=== PATIENT | female | born 1960 | race Two or more races ===

== ENCOUNTER 2020-04-06 14:55 | Inpatient (IN) | payer MEDICAID ==
[~2020-04-06] VITALS: Ht 160 cm; Wt 68.9 kg
[2020-04-06] MEDS ORDERED: METF-815 MT (15:17)
[2020-04-06] MEDS ORDERED: ASPIRIN 81MG TABLET PO ONE (16:15)
[2020-04-06 16:45] LABS: CHLORIDE 105 mEq/L (98-107)
[2020-04-06 16:46] LABS: BASOPHILS % 0.4 % (0.0-2.0); EOSINOPHILS % 1.5 % (0.0-5.0); HEMATOCRIT. 29.9 % (36.0-48.0); HEMOGLOBIN. 10.1 g/dL (12.0-16.0); MEAN CORPUSCULAR HEMOGLOBIN 28.6 pg (28.0-32.0); MEAN CORPUSCULAR VOLUME 84.8 fL (81.0-99.0); MEAN PLATELET VOLUME 8.9 fl (7.4-10.4); NEUTROPHILS % 69.1 % (40.0-76.0); PLATELET 298 x1000/uL (130-400); RED BLOOD CELL COUNT 3.52 mill/uL (4.2-5.4); RED CELL DISTRIBUTION WIDTH 15.4 % (11.6-14.6)
[2020-04-06 16:52] LABS: D-DIMER 2.12 mg/L FEU (<0.50); PARTIAL THROMBOPLASTIN TIME 26.3 sec (23.4-31.0); PROTHROMBIN TIME 10.6 sec (9.6-11.0)
[2020-04-06] MEDS ORDERED: AMLO10TA80 MT (17:41)
[2020-04-06] MEDS ORDERED: SPIR50TA5 PO (17:41)
[2020-04-06] MEDS ORDERED: FLUT9.9S16 BOTHNSTRLS (17:43)
[2020-04-06] MEDS ORDERED: HYDR25TA PO (17:43)
[2020-04-06] MEDS ORDERED: BENA40TA9 MT (17:44)
[2020-04-06] MEDS ORDERED: ATOR40TA70 MT (17:44)
[2020-04-06] MEDS ORDERED: ATEN-42 MT (17:45)
[2020-04-06] MEDS ORDERED: ALBU4TAB6 MT (17:46)
[2020-04-06 19:23] LABS: C REACTIVE PROTEIN QUANT 7.9 mg/L (0.0-3.0)
[2020-04-06] MEDS ORDERED: ACETAMINOPHEN 500MG TABLET PO ONE (20:45)
[2020-04-06] MEDS ORDERED: MORPHINE SULFATE 2 MG/ML CPJ (NOT FOR IM USE) IV ONE (20:45)
[2020-04-06] MEDS ORDERED: ENOXAPARIN 100MG/ML SYR SUBCUT NR (21:00)
[2020-04-07] VITALS (7 sets, daily range): BP systolic 89–115; BP diastolic 43–65
[2020-04-07] MEDS: CEFTRIAXONE 1,000 MG in DEXTROSE 5% WATER 50 ML IV SCH (04:00)
[2020-04-07] MEDS: AZITHROMYCIN 500 MG in DEXT 5% WATER 250 ML IV SCH (04:57)
[2020-04-07 05:20] LABS: HEMATOCRIT 29.7 % (36.0-48.0); MEAN CORPUSCULAR VOLUME 85.8 fL (81.0-99.0); PLATELET 271 x1000/uL (130-400); RED BLOOD CELL COUNT 3.46 mill/uL (4.2-5.4); RED CELL DISTRIBUTION WIDTH 14.8 % (11.6-14.6)
[2020-04-07 05:38] LABS: CHLORIDE 106 mEq/L (98-107)
[2020-04-07 05:43] LABS: LDL CHOLESTEROL 104 mg/dL (5-100)
[2020-04-07 05:45] LABS: T4 FREE 1.01 ng/dL (0.76-1.46)
[2020-04-07 05:56] LABS: HDL CHOLESTEROL 45 mg/dL (40-59)
[2020-04-07] MEDS: ENOXAPARIN 40MG/0.4ML SYR SUBCUT SCH (08:51)
[2020-04-07] MEDS ORDERED: ALBUTEROL 6.7GM HFA INHALER ORI PRN (09:00)
[2020-04-07] MEDS: ASPIRIN 81MG TABLET PO SCH (09:30)
[2020-04-07] MEDS ORDERED: ONDANSETRON HCL 4MG/2ML INJ IV PRN (09:30)
[2020-04-07] MEDS ORDERED: ACETAMINOPHEN 325MG TABLET PO PRN (09:30)
[2020-04-07] MEDS: ATORVASTATIN CALCIUM 40MG TABLET PO SCH (21:04)
[2020-04-08] VITALS (8 sets, daily range): BP systolic 90–167; BP diastolic 50–62
[2020-04-08] MEDS: CEFTRIAXONE 1,000 MG in DEXTROSE 5% WATER 50 ML IV SCH (02:03)
[2020-04-08] MEDS: AZITHROMYCIN 500 MG in DEXT 5% WATER 250 ML IV SCH (03:04)
[2020-04-08 08:10] LABS: BASOPHILS % 0.5 % (0.0-2.0); EOSINOPHILS % 1.7 % (0.0-5.0); HEMATOCRIT. 30.9 % (36.0-48.0); HEMOGLOBIN. 10.5 g/dL (12.0-16.0); LYMPHOCYTES % 25.9 % (20.0-50.0); MEAN CORPUSCULAR HEMOGLOBIN 28.8 pg (28.0-32.0); MEAN CORPUSCULAR VOLUME 85.2 fL (81.0-99.0); MEAN PLATELET VOLUME 8.6 fl (7.4-10.4); MONOCYTES % 7.3 % (2.0-8.0); NEUTROPHILS % 64.6 % (40.0-76.0); PLATELET 281 x1000/uL (130-400); RED BLOOD CELL COUNT 3.63 mill/uL (4.2-5.4); RED CELL DISTRIBUTION WIDTH 14.9 % (11.6-14.6)
[2020-04-08 08:17] LABS: CHLORIDE 103 mEq/L (98-107)
[2020-04-08] MEDS: ASPIRIN 81MG TABLET PO SCH (09:32)
[2020-04-08] MEDS: ENOXAPARIN 40MG/0.4ML SYR SUBCUT SCH (09:33)
[2020-04-09] VITALS: BP 118/60
[2020-04-09] MEDS ORDERED: CEFTRIAXONE 1,000 MG in DEXTROSE 5% WATER 50 ML IV SCH (03:00)
[2020-04-09 04:00] VITALS: BP 92/62
[2020-04-09] MEDS ORDERED: AZITHROMYCIN 500 MG TABLET PO SCH (09:00)
[2020-04-09] MEDS: ENOXAPARIN 40MG/0.4ML SYR SUBCUT SCH (09:05)
[2020-04-09] MEDS: ASPIRIN 81MG TABLET PO SCH (09:05)
[2020-04-09 09:58] VITALS: BP 96/52
[2020-04-09] MEDS: SODIUM CHLORIDE 0.9% 1,000 ML IV SCH (12:01)
[2020-04-09 13:35] LABS: BASOPHILS % 0.4 % (0.0-2.0); EOSINOPHILS % 2.1 % (0.0-5.0); HEMATOCRIT. 33.9 % (36.0-48.0); HEMOGLOBIN. 11.5 g/dL (12.0-16.0); LYMPHOCYTES % 25.1 % (20.0-50.0); MEAN CORPUSCULAR HEMOGLOBIN 28.9 pg (28.0-32.0); MEAN CORPUSCULAR VOLUME 85.2 fL (81.0-99.0); MEAN PLATELET VOLUME 8.6 fl (7.4-10.4); MONOCYTES % 7.4 % (2.0-8.0); PLATELET 321 x1000/uL (130-400); RED BLOOD CELL COUNT 3.98 mill/uL (4.2-5.4); RED CELL DISTRIBUTION WIDTH 14.8 % (11.6-14.6)
[2020-04-09 13:42] LABS: CHLORIDE 103 mEq/L (98-107)
[2020-04-09 17:07] VITALS: BP 104/49
[2020-04-09 20:00] VITALS: BP 104/52
[2020-04-09] MEDS: ATORVASTATIN CALCIUM 40MG TABLET PO SCH (20:22)
[2020-04-10] VITALS: BP 109/51
[2020-04-10] MEDS: SODIUM CHLORIDE 0.9% 1,000 ML IV SCH (03:17)
[2020-04-10 04:00] VITALS: BP 99/54
[2020-04-10] MEDS: ASPIRIN 81MG TABLET PO SCH (08:50)
[2020-04-10] MEDS: ENOXAPARIN 40MG/0.4ML SYR SUBCUT SCH (08:50)
[2020-04-10] MEDS ORDERED: IOHEXOL-300 100 ML BOTTLE ONE (09:02)
[2020-04-10] MEDS ORDERED: FENTANYL CITRATE/PF 50MCG/ML 2ML VIAL ONE (09:02)
[2020-04-10] MEDS ORDERED: MIDAZOLAM HCL 2 MG/2 ML VIAL ONE (09:02)
[2020-04-10] MEDS ORDERED: LIDOCAINE HCL 1% 20ML VIAL (Pyxis) INJ ONE (09:03)
[2020-04-10] MEDS ORDERED: ATROPINE SULFATE 1MG/10ML SYR IV PRN (09:45)
[2020-04-10] MEDS ORDERED: ACETAMINOPHEN 325MG TABLET PO PRN (09:45)
[2020-04-10 12:59] VITALS: BP 122/66
[2020-04-10 13:23] VITALS: BP 122/66
== END 2020-04-10 14:43 | disposition home or self-care (01) | DRG 191 ==
LOC: ER 14:55 → 7WST 19:34 → EDBEDREQTM 20:09 → EDBEDREQ 20:09 → ENRESERV 21:19 → 6WST 04-08 20:36
PROVIDERS: ADMIT Internal Medicine; ATTEND Internal Medicine
PROC: 4A023N7 Measurement of Cardiac Sampling and Pressure, Left Heart, Percutaneous Approach (ICD-10-PCS; principal; 2020-04-10)
PROC: B2111ZZ Fluoroscopy of Multiple Coronary Arteries using Low Osmolar Contrast (ICD-10-PCS; 2020-04-10)
PROC: B2151ZZ Fluoroscopy of Left Heart using Low Osmolar Contrast (ICD-10-PCS; 2020-04-10)
DX: I25.110 Atherosclerotic heart disease of native coronary artery with unstable angina pectoris (principal); N17.0 Acute kidney failure with tubular necrosis; D68.59 Other primary thrombophilia; I11.0 Hypertensive heart disease with heart failure; I50.42 Chronic combined systolic (congestive) and diastolic (congestive) heart failure; D64.9 Anemia, unspecified; E11.9 Type 2 diabetes mellitus without complications; E03.9 Hypothyroidism, unspecified; E78.5 Hyperlipidemia, unspecified; Z20.828 Contact with and (suspected) exposure to other viral communicable diseases; R07.89 Other chest pain; J44.9 Chronic obstructive pulmonary disease, unspecified; Z82.3 Family history of stroke; Z82.49 Family history of ischemic heart disease and other diseases of the circulatory system; Z79.84 Long term (current) use of oral hypoglycemic drugs; Z79.899 Other long term (current) drug therapy; I25.2 Old myocardial infarction
CPT/HCPCS: 36415; 71045; 80048; 80053; 80061; 82550; 82728; 83036; 83605; 83615; 83880; 84145; 84439; 84443; 84484; 85025; 85027; 85379; 85384; 86140; 86710; 87635; 87804; 93005; 93306; 93458; 99285; C1769; C1887; C1893; J0456; J0696; J1644; J1650; J2250; J3010; J3490; J7030; J7060; Q9967